=== PATIENT | female | born 1990 | race African-American/Black ===

== ENCOUNTER 2018-02-17 00:35 | Inpatient (IN) | payer OTHER ==
[2018-02-17] MEDS ORDERED: Butorphanol Tartrate 1 MG/ML VIAL SLOW IVP PRN (01:35)
[2018-02-17] MEDS ORDERED: Promethazine HCl 25 MG/ML VIAL IM PRN (01:35)
[2018-02-17] MEDS ORDERED: Ondansetron PF 4 MG/2 ML Vial IVP PRN ×2 (01:35→18:28)
[2018-02-17] MEDS ORDERED: NS w/ Oxytocin 10 units 500 ML IV SCH ×3 (01:45→08:00)
[2018-02-17] MEDS ORDERED: Misoprostol 200 MCG TAB RC PRN (01:45)
[2018-02-17] MEDS ORDERED: Ibuprofen 800 MG TAB PO PRN (01:45)
[2018-02-17] MEDS ORDERED: Lidocaine 1% (PF) 30 ML VIAL SC PRN (01:45)
[2018-02-17 01:58] VITALS: BMI 34.2
[2018-02-17] MEDS: Lactated Ringer's 1,000 ML IV SCH ×3 (02:35→16:57)
[2018-02-17 02:56] LABS: Hemoglobin 11.6 g/dL (12.0-16.0); Mean Corpuscular HGB CONC 33.9 g/dL (32.0-36.0); Mean Corpuscular Hemoglobin 28.5 pg (27.0-31.0); Mean Corpuscular Volume 84.2 fL (78.0-98.0); Mean Platelet Volume 8.1 fL (7.4-10.4); Platelet Count 231 thou/uL (130-400); RBC Distribution Width 12.9 % (11.5-14.5); Red Blood Cell (RBC) Count 4.07 mill/uL (4.20-5.40); White Blood Cell (WBC) Count 12.1 thou/uL (4.8-10.8)
[2018-02-17 03:38] LABS: HBSAg Index 0.17 S/CO (0-0.99); Hep B Surf Ag Non-Reactive S/CO (NonReactive)
[2018-02-17 10:43] LABS: Syphilis Antibody Nonreactive (Nonreactive); Syphilis Antibody Index 0.03 S/CO (<1.00 Non-Reactive)
[2018-02-17] MEDS ORDERED: NS / Oxytocin 40 units/1000ml 0 ML ONE (10:54)
[2018-02-17] MEDS ORDERED: Lidocaine 1% (PF) 30 ML VIAL ONE (10:55)
[2018-02-17] MEDS ORDERED: Carboprost 250 MCG/ML AMP ONE (17:49)
[2018-02-17] MEDS ORDERED: Methylergonovine 0.2 MG/ML VIAL ONE (17:49)
[2018-02-17] MEDS ORDERED: NS / Oxytocin 40 units/1000ml 1,000 ML ONE (17:49)
[2018-02-17] MEDS ORDERED: Misoprostol 200 MCG TAB ONE (17:49)
[2018-02-17] MEDS ORDERED: Fentanyl 4 mcg/Bup 0.1% Cadd 0 ML ONE (17:51)
[2018-02-17] MEDS ORDERED: Bisacodyl 10 MG SUPP PR PRN (18:28)
[2018-02-17] MEDS ORDERED: Preparation H Ointment 28 GM TUBE PR PRN (18:28)
[2018-02-17] MEDS ORDERED: Lanolin Ointment 7 GM TUBE TOP PRN (18:28)
[2018-02-17] MEDS ORDERED: HYDROcodone/Acetaminophen 5/325 mg Tablet PO PRN ×2 (18:28)
[2018-02-17] MEDS ORDERED: Milk Of Magnesia 30 ML UDCUP PO PRN (18:28)
[2018-02-17] MEDS ORDERED: Benzocaine/Menthol 20-0.5% 60 ML CAN TOP PRN (18:28)
[2018-02-17] MEDS ORDERED: NS / Oxytocin 40 units/1000ml 1,000 ML IV SCH (18:30)
[2018-02-17] MEDS: Ibuprofen 800 MG TAB PO SCH (22:40)
[2018-02-17] MEDS: Docusate Calcium (SURFAK) 240 MG CAP PO SCH ×2 (22:42)
[2018-02-18 06:25] LABS: Hemoglobin 10.7 g/dL (12.0-16.0); Mean Corpuscular HGB CONC 33.6 g/dL (32.0-36.0); Mean Corpuscular Hemoglobin 28.3 pg (27.0-31.0); Mean Corpuscular Volume 84.3 fL (78.0-98.0); Mean Platelet Volume 8.2 fL (7.4-10.4); Platelet Count 228 thou/uL (130-400); RBC Distribution Width 12.8 % (11.5-14.5); Red Blood Cell (RBC) Count 3.77 mill/uL (4.20-5.40); White Blood Cell (WBC) Count 16.3 thou/uL (4.8-10.8)
[2018-02-18] MEDS: Ibuprofen 800 MG TAB PO SCH ×2 (08:08→13:34)
[2018-02-18] MEDS: Docusate Calcium (SURFAK) 240 MG CAP PO SCH (08:09)
[2018-02-18] MEDS: Ferrous Sulfate 325 MG TAB PO SCH ×2 (08:09→18:49)
[2018-02-18] MEDS ORDERED: Prenatal Vitamin 1 TAB PO SCH (09:00)
[2018-02-18 16:22] VITALS: BP 104/59; TEMP 98.3
== END 2018-02-18 19:35 | disposition home or self-care (01) | DRG 807 ==
LOC: L&D/OP 00:35 → L&D 01:19 → 3SE 02-18 00:36
PROVIDERS: ADMIT Family Medicine; ATTEND Family Medicine
PROC: 10E0XZZ Delivery of Products of Conception, External Approach (ICD-10-PCS; principal; 2018-02-17)
DX: O80 Encounter for full-term uncomplicated delivery (principal); Z37.0 Single live birth; Z3A.38 38 weeks gestation of pregnancy
CPT/HCPCS: 36415; 85027; 86780; 86850; 86900; 86901; 87340; 99285; J0595; J2001; J2210; J3490

== ENCOUNTER 2020-05-08 08:47 | Outpatient (CLI) | payer OTHER | END 2020-05-08 08:48 | disposition home or self-care (01) | LOC: BICULT 08:47 | PROVIDERS: ATTEND Family Medicine | DX: Z34.82 Encounter for supervision of other normal pregnancy, second trimester (principal) | CPT/HCPCS: 76805 ==